=== PATIENT | male | born 1985 | race Caucasian/White ===

== ENCOUNTER 2018-07-31 12:17 | Emergency (ER) | payer SELFPAY | END 2018-07-31 12:50 | disposition home or self-care (01) | LOC: NAV ERS 12:17 | DX: L55.1 Sunburn of second degree (principal); E78.5 Hyperlipidemia, unspecified; I10 Essential (primary) hypertension; F17.220 Nicotine dependence, chewing tobacco, uncomplicated; Z79.899 Other long term (current) drug therapy | CPT/HCPCS: 99282 ==

== ENCOUNTER 2022-12-25 14:41 | Outpatient (CLI) | payer OTHER | END 2022-12-25 14:42 | disposition home or self-care (01) | LOC: NAV RAD 14:41 | PROVIDERS: ATTEND Family Medicine | DX: M54.16 Radiculopathy, lumbar region (principal); M47.814 Spondylosis without myelopathy or radiculopathy, thoracic region | CPT/HCPCS: 72100 ==